=== PATIENT | female | born 1995 | race Caucasian/White ===

== ENCOUNTER 2018-03-04 13:31 | Inpatient (IN) | payer OTHER ==
[~2018-03-04 13:31] MED LIST: Bupivacaine HCl 0.25%/Epi 0.0005/PF 10 ML VIAL FS ONE; Lidocaine 2% MPF 10 ML AMP (For Epidural Use) ONE; ePHEDrine/0.9% NaCl/PF SYRINGE 50 mg/10 ml ONE
[2018-03-04 23:13] VITALS: BMI 34.0
[2018-03-04] MEDS ORDERED: NS w/ Oxytocin 10 units 500 ML IV SCH (23:51)
[2018-03-04] MEDS ORDERED: Lidocaine 1% (PF) 30 ML VIAL SC PRN (23:51)
[2018-03-04] MEDS ORDERED: NS / Oxytocin 40 units/1000ml 1,000 ML IV PRN (23:51)
[2018-03-04] MEDS ORDERED: Diphenoxylate HCl/Atropine Tablet PO PRN ×2 (23:51)
[2018-03-04] MEDS ORDERED: Docusate 100 MG CAP PO PRN (23:51)
[2018-03-04] MEDS ORDERED: Misoprostol 200 MCG TAB PR PRN (23:51)
[2018-03-04] MEDS ORDERED: Promethazine HCl 25 MG/ML VIAL IM PRN (23:51)
[2018-03-04] MEDS ORDERED: traMADol HCl 50 MG TAB PO PRN (23:51)
[2018-03-04] MEDS ORDERED: Zolpidem Tartrate 5 MG TAB PO PRN (23:51)
[2018-03-04] MEDS: Lactated Ringer's 1,000 ML IV SCH (23:51)
[2018-03-04] MEDS ORDERED: Ondansetron PF 4 MG/2 ML Vial IVP PRN (23:51)
[2018-03-04] MEDS ORDERED: Acetaminophen 500 MG TAB PO PRN (23:51)
[2018-03-04] MEDS ORDERED: Ibuprofen 800 MG TAB PO PRN (23:51)
[2018-03-04 23:57] LABS: Hemoglobin 9.8 g/dL (12.0-16.0); Mean Corpuscular HGB CONC 32.2 g/dL (32.0-36.0); Mean Corpuscular Hemoglobin 24.6 pg (27.0-31.0); Mean Corpuscular Volume 76.5 fL (78.0-98.0); Mean Platelet Volume 8.3 fL (7.4-10.4); Platelet Count 205 thou/uL (130-400); RBC Distribution Width 13.1 % (11.5-14.5); White Blood Cell (WBC) Count 7.8 thou/uL (4.8-10.8)
[2018-03-05 00:36] LABS: Syphilis Antibody Nonreactive (Nonreactive); Syphilis Antibody Index 0.06 S/CO (<1.00 Non-Reactive)
[2018-03-05 00:37] LABS: HBSAg Index 0.39 S/CO (0-0.99); Hep B Surf Ag Non-Reactive S/CO (NonReactive)
[2018-03-05] MEDS: Misoprostol 100 MCG TAB VAG SCH ×4 (00:46→15:06)
[2018-03-05] MEDS: NS w/ Oxytocin 10 units 500 ML IV SCH ×2 (00:46→05:55)
[2018-03-05] MEDS: Lactated Ringer's 1,000 ML IV SCH ×2 (05:55→08:38)
[2018-03-05] MEDS ORDERED: Fentanyl 4 mcg/Bup 0.1% Cadd 100 ML ONE (08:09)
[2018-03-05] MEDS ORDERED: Lidocaine 1.5% w/Epi 1:200K 30 ML VIAL (Epid Use) ONE (08:09)
[2018-03-05] MEDS ORDERED: Bisacodyl 10 MG SUPP PR PRN (13:41)
[2018-03-05] MEDS ORDERED: diphenhydrAMINE 25 MG CAP PO PRN (13:41)
[2018-03-05] MEDS ORDERED: Lanolin Ointment 7 GM TUBE TOP PRN (13:41)
[2018-03-05] MEDS ORDERED: Benzocaine/Menthol 20-0.5% 60 ML CAN TOP PRN (13:41)
[2018-03-05] MEDS ORDERED: Preparation H Ointment 28 GM TUBE PR PRN (13:41)
[2018-03-05] MEDS ORDERED: traMADol HCl 50 MG TAB PO PRN ×3 (13:41→19:56)
[2018-03-05] MEDS ORDERED: Zolpidem Tartrate 5 MG TAB PO PRN (13:41)
[2018-03-05] MEDS ORDERED: Ondansetron PF 4 MG/2 ML Vial IVP PRN ×2 (13:41→14:48)
[2018-03-05] MEDS ORDERED: Misoprostol 200 MCG TAB VAG PRN (13:41)
[2018-03-05] MEDS ORDERED: Milk Of Magnesia 30 ML UDCUP PO PRN (13:41)
[2018-03-05] MEDS ORDERED: NS / Oxytocin 40 units/1000ml 1,000 ML IV SCH (13:45)
[2018-03-05] MEDS ORDERED: Misoprostol 200 MCG TAB ONE (14:09)
[2018-03-05] MEDS ORDERED: Naloxone HCl 0.4 mg/ml Vial IVP PRN ×2 (14:48)
[2018-03-05] MEDS ORDERED: ePHEDrine/0.9% NaCl/PF SYRINGE 50 mg/10 ml SLOW IVP PRN (14:48)
[2018-03-05] MEDS ORDERED: Eucerin (Mineral Oil/Petrolatum,White) 30 gm Jar TOP PRN (14:48)
[2018-03-05] MEDS ORDERED: Lactated Ringer's 500 ML IV PRN (14:48)
[2018-03-05] MEDS ORDERED: diphenhydrAMINE 50 MG/ML VIAL IVP PRN (14:48)
[2018-03-05] MEDS ORDERED: Promethazine HCl 25 MG/ML VIAL IM PRN (14:48)
[2018-03-05] MEDS ORDERED: Fentanyl 4 mcg/Bupivacaine 0.1% Cassette 100 ML EPIDURAL SCH (15:00)
[2018-03-05] MEDS ORDERED: Communication Order-Pharmacy FS SCH (15:00)
[2018-03-05] MEDS: Ibuprofen 800 MG TAB PO SCH (15:06)
[2018-03-05] MEDS ORDERED: Methylergonovine 0.2 MG/ML VIAL ONE (15:28)
--- NOTE | 2018-03-05 15:45 | PDOC.EVN ---
Event Note - Event Note Event Note: Location: L&D Time: 0 Reason for eval: asked to asses for PPH Background: This patient underwent with Dr brown earlier today. QBL was about 325ml. She had had about 700ml QBL since delivery due to slow trickle of blood PV. I assessed the patient at bedside. Meds given already: methergine (about 10 minutes ago); cytotec Physical Exam Findings: No lacs noted [place] in use I performed a BME and expressed 60ml of clot (2 small clots) Fundus firm Assessment: I suspect WAYNE atony. QBL at 1000ml (PPH) Recommendation: As QBL now at 100ml, recommend 1 gram TXA IV per ACOG. I discussed this with the patient. Dr Brown to be updated and see if he would like to proceed with TXA as described.
[2018-03-05 17:48] LABS: Hemoglobin 9.5 g/dL (12.0-16.0); Mean Corpuscular HGB CONC 33.2 g/dL (32.0-36.0); Mean Corpuscular Hemoglobin 25.7 pg (27.0-31.0); Mean Corpuscular Volume 77.3 fL (78.0-98.0); Mean Platelet Volume 8.2 fL (7.4-10.4); Platelet Count 164 thou/uL (130-400); RBC Distribution Width 13.1 % (11.5-14.5); Red Blood Cell (RBC) Count 3.68 mill/uL (4.20-5.40); White Blood Cell (WBC) Count 12.3 thou/uL (4.8-10.8)
[2018-03-05] MEDS: Ferrous Sulfate 325 MG TAB PO SCH (18:34)
[2018-03-05] MEDS: Acetaminophen 325 MG TAB PO PRN (20:28)
[2018-03-05] MEDS ORDERED: Docusate Calcium (SURFAK) 240 MG CAP PO SCH (21:00)
[2018-03-06] MEDS: Ibuprofen 800 MG TAB PO SCH ×4 (01:19→23:18)
[2018-03-06 06:33] LABS: Hemoglobin 8.5 g/dL (12.0-16.0); Mean Corpuscular Hemoglobin 25.7 pg (27.0-31.0); Mean Corpuscular Volume 77.7 fL (78.0-98.0); Mean Platelet Volume 8.3 fL (7.4-10.4); Platelet Count 157 thou/uL (130-400); White Blood Cell (WBC) Count 9.3 thou/uL (4.8-10.8)
[2018-03-06] MEDS: Ferrous Sulfate 325 MG TAB PO SCH ×2 (08:57→18:10)
[2018-03-06] MEDS: Prenatal Vitamin 1 TAB PO SCH (08:57)
[2018-03-06] MEDS ORDERED: Adacel (T-DAP) 0.5 ML SYRINGE IM ONE (09:00)
[2018-03-07 08:23] VITALS: BP 100/58; TEMP 98.2
[2018-03-07] MEDS: Acetaminophen 325 MG TAB PO PRN (10:01)
[2018-03-07] MEDS: Ferrous Sulfate 325 MG TAB PO SCH (10:01)
[2018-03-07] MEDS: Prenatal Vitamin 1 TAB PO SCH (10:01)
[2018-03-07] MEDS: Ibuprofen 800 MG TAB PO SCH (10:04)
[2018-03-07] MEDS ORDERED: Measles/Mumps/Rubella 10 MCG/0.5 ML VIAL SC ONE (11:00)
== END 2018-03-07 11:25 | disposition home or self-care (01) | DRG 806 ==
LOC: L&D 22:44 → 3SW 03-05 18:03 → EDSTATUS 03-12 13:31
PROVIDERS: ADMIT Obstetrics & Gynecology; ATTEND Obstetrics & Gynecology
PROC: 3E033VJ Introduction of Other Hormone into Peripheral Vein, Percutaneous Approach (ICD-10-PCS; 2018-03-04)
PROC: 10907ZC Drainage of Amniotic Fluid, Therapeutic from Products of Conception, Via Natural or Artificial Opening (ICD-10-PCS; 2018-03-04)
PROC: 3E0P7VZ Introduction of Hormone into Female Reproductive, Via Natural or Artificial Opening (ICD-10-PCS; principal; 2018-03-05)
PROC: 10E0XZZ Delivery of Products of Conception, External Approach (ICD-10-PCS; 2018-03-05)
PROC: 0UQMXZZ Repair Vulva, External Approach (ICD-10-PCS; 2018-03-05)
DX: O71.82 Other specified trauma to perineum and vulva (principal); O72.2 Delayed and secondary postpartum hemorrhage; Z37.0 Single live birth; G43.909 Migraine, unspecified, not intractable, without status migrainosus; K21.9 Gastro-esophageal reflux disease without esophagitis; F41.9 Anxiety disorder, unspecified; F32.9 Major depressive disorder, single episode, unspecified; O99.343 Other mental disorders complicating pregnancy, third trimester; O99.613 Diseases of the digestive system complicating pregnancy, third trimester; O99.353 Diseases of the nervous system complicating pregnancy, third trimester; Z88.5 Allergy status to narcotic agent; Z88.2 Allergy status to sulfonamides; Z3A.39 39 weeks gestation of pregnancy; O36.63X0 Maternal care for excessive fetal growth, third trimester, not applicable or unspecified
CPT/HCPCS: 36415; 51702; 85027; 86780; 86850; 86900; 86901; 87340; 90707; 90715; J2001; J2210; J2405

== ENCOUNTER 2019-08-13 12:46 | Outpatient (CLI) | payer OTHER | END 2019-08-13 12:47 | disposition home or self-care (01) | PROVIDERS: ATTEND Family Medicine | DX: R00.2 Palpitations (principal) | CPT/HCPCS: 93225; 93226 ==

== ENCOUNTER 2021-04-06 17:52 | Emergency (ER) | payer BC, OTHER ==
[2021-04-06 18:34] LABS: #Basophils 0.1 thou/uL (0.0-0.2); #Eosinphils 0.3 thou/uL (0.0-0.7); #Lymphocytes 2.8 thou/uL (1.20-3.40); #Monocytes 0.6 thou/uL (0.11-0.59); #Neutrophils 6.9 thou/uL (1.40-6.50); %Basophils 1.2 % (0.0-1.0); %Eosinophils 2.5 % (0.0-10.0); %Lymphocytes 25.8 % (21.0-51.0); %Neutrophils 64.5 % (42.0-75.0); Hemoglobin 13.2 g/dL (12.0-16.0); Mean Corpuscular HGB CONC 33.6 g/dL (32.0-36.0); Mean Corpuscular Volume 83.3 fL (78.0-98.0); Mean Platelet Volume 7.1 fL (7.4-10.4); Platelet Count 283 thou/uL (130-400); RBC Distribution Width 12.6 % (11.5-14.5); Red Blood Cell (RBC) Count 4.72 mill/uL (4.20-5.40); White Blood Cell (WBC) Count 10.7 thou/uL (4.8-10.8)
[2021-04-06 18:54] LABS: ALT (SGPT) 14 U/L (8-55); AST (SGOT) 9 U/L (5-34); Albumin 4.3 g/dL (3.5-5.0); Alkaline Phosphatase 68 U/L (40-110); Anion Gap 19 mmol/L (10-20); BUN (Urea Nitrogen) 13 mg/dL (7.0-18.7); Bilirubin, Total 0.3 mg/dL (0.2-1.2); Calc. Creatinine Clearance 0 mL/min (70-130); Calcium 9.3 mg/dL (7.8-10.44); Carbon Dioxide 19 mmol/L (22-29); Chloride 103 mmol/L (98-107); Globulin 2.7 g/dL (2.4-3.5); Glucose 93 mg/dL (70-105); Potassium 3.8 mmol/L (3.5-5.1); Sodium 137 mmol/L (136-145)
[2021-04-06 19:55] LABS: Pregnancy Test - Urine (BHCG) Negative (Negative); Pregu Control Background? CLEAR/WHITE (CLR/WHITE); Pregu Control Bar Appear? YES (CONTROL BAR); Specific Gravity 1.012 (1.002-1.036)
[2021-04-06] MEDS ORDERED: Ketorolac Tromethamine 30 MG/ML VIAL ONE (21:04)
== END 2021-04-06 21:11 | disposition home or self-care (01) ==
LOC: ERS 17:52
DX: R09.1 Pleurisy (principal); F17.290 Nicotine dependence, other tobacco product, uncomplicated; Z79.899 Other long term (current) drug therapy
CPT/HCPCS: 36415; 71045; 71275; 80053; 81025; 84484; 85025; 93005; 96374; J1885

== ENCOUNTER 2023-06-27 21:41 | Emergency (ER) | payer OTHER ==
[2023-06-27 22:19] LABS: #Basophils 0.07 10x3/uL (0.0-0.2); %Basophils 0.7 % (0.0-1.0); %Eosinophils 3.8 % (0.0-10.0); %Monocytes 6.2 % (0.0-10.0); Hematocrit 40.4 % (36.0-47.0); Hemoglobin 13.3 g/dL (12.0-16.0); Mean Corpuscular HGB CONC 32.9 g/dL (32.0-36.0); Mean Corpuscular Hemoglobin 27.7 pg (27.0-31.0); Mean Corpuscular Volume 84.2 fL (78.0-98.0); Mean Platelet Volume 9.5 fL (7.4-10.4); Platelet Count 281 10x3/uL (130-400); RBC Distribution Width 15.6 % (11.5-14.5)
[2023-06-27 22:31] LABS: ALT (SGPT) 30 U/L (8-55); AST (SGOT) 18 U/L (5-34); Albumin 4.3 g/dL (3.5-5.0); Alkaline Phosphatase 84 U/L (40-110); Anion Gap 16 mmol/L (10-20); BUN (Urea Nitrogen) 12 mg/dL (7.0-18.7); Bilirubin, Total 0.4 mg/dL (0.2-1.2); Calc. Creatinine Clearance 0 mL/min (70-130); Calcium 9.5 mg/dL (7.8-10.44); Carbon Dioxide 22 mmol/L (22-29); Chloride 108 mmol/L (98-107); Estimated GFR 110; Globulin 3.5 g/dL (2.4-3.5); Glucose 99 mg/dL (70-105); Potassium 3.5 mmol/L (3.5-5.1); Protein, Total 7.8 g/dL (6.0-8.3); Sodium 142 mmol/L (136-145)
[2023-06-27] MEDS ORDERED: Ketorolac Tromethamine 30 MG (1 mL) VIAL ONE (22:47)
[2023-06-27] MEDS ORDERED: Ondansetron PF 4 MG/2 ML Vial ONE (22:47)
[2023-06-27 22:57] LABS: Troponin I Less than 0.010 ng/mL (< 0.028)
[2023-06-27] MEDS ORDERED: Promethazine HCl 12.5 MG in Sodium Chloride 0.9% 50 ML IVPB SCH (23:59)
== END 2023-06-28 01:24 | disposition home or self-care (01) ==
LOC: ERS 21:41
DX: N93.8 Other specified abnormal uterine and vaginal bleeding (principal); R07.9 Chest pain, unspecified; R11.0 Nausea; Z55.6 Problems related to health literacy; Z86.711 Personal history of pulmonary embolism; Z86.718 Personal history of other venous thrombosis and embolism; F41.8 Other specified anxiety disorders; F43.10 Post-traumatic stress disorder, unspecified; E28.2 Polycystic ovarian syndrome
CPT/HCPCS: 71045; 80053; 83880; 84484; 85025; 85379; 93005; 96361; 96365; 96375; J1885; J2405; J2550